=== PATIENT | male | born 1975 | race Caucasian/White ===

== ENCOUNTER 2020-07-02 14:45 | Emergency (ER) | payer OTHER ==
[~2020-07-02] VITALS: Ht 182.9 cm; Wt 81.7 kg
[~2020-07-02 14:45] MED LIST: ACETAMINOPHEN-1 EAC1 PO; CEPHALEXIN 500500 M3 PO; IBUPROFEN 800800 M1 PO; NOHOMEMEDICATIONS; ZOFRAN ODT4 MG PO
[2020-07-02] MEDS ORDERED: HYDROCORTISONE3011 TOP (18:00)
[2020-07-02] MEDS ORDERED: MEDROLDOSEPACK PO (18:00)
[2020-07-02 18:17] VITALS: BP 122/88
== END 2020-07-02 18:18 | disposition home or self-care (01) ==
LOC: M.ERS 14:45
DX: L25.9 Unspecified contact dermatitis, unspecified cause (principal)

== ENCOUNTER 2021-04-16 08:28 | Emergency (ER) | payer BC ==
[~2021-04-16] VITALS: Ht 182.9 cm; Wt 81.7 kg
[~2021-04-16 08:28] MED LIST changes: +HYDROCORTISONE3011 TOP; +MEDROLDOSEPACK PO
[2021-04-16] MEDS ORDERED: PREDNISONE 20 M20 M1 PO (08:51)
[2021-04-16 08:58] VITALS: BP 137/81
== END 2021-04-16 08:59 | disposition home or self-care (01) ==
LOC: M.ERS 08:28
DX: S60.569A Insect bite (nonvenomous) of unspecified hand, initial encounter (principal); W57.XXXA Bitten or stung by nonvenomous insect and other nonvenomous arthropods, initial encounter; Y93.89 Activity, other specified; Y92.89 Other specified places as the place of occurrence of the external cause; Y99.8 Other external cause status